=== PATIENT | male | born 1960 | race Caucasian/White ===

== ENCOUNTER 2018-06-13 15:04 | Observation (INO) | payer OTHER ==
--- OUTSIDE RECORDS SUMMARY | 2018-06-13 15:07 | XMS REPORT | Clinical Summary ---
:1960 Author Organization [facility] Address [address] [place] [id number] Care Team Providers Name Role Phone Johann Baldwin MD Primary Care Provider Allergies Active Allergy Reactions Severity Noted Date Comments No Known Drug Allergies 11/17/2015 Medications No known medications Active Problems Problem Noted Date Light sensitivity 12/28/2015 Graves disease 12/28/2015 Overview: Diagnosed with Graves eye disease by Ochoa Malik per patient Anxiety disorder 11/17/2015 Blood pressure elevated without history of HTN 11/17/2015 Fatigue 11/17/2015 Flushing 11/17/2015 Family History Medical History Relation Name Comments Ventura's disease Mother Hypothyroidism Mother Migraines Mother Hypothyroidism Sister Relation Name Status Comments Mother Sister Social History Tobacco Use Types Packs/Day Years Used Date Never Smoker Alcohol Use Drinks/Week oz/Week Comments Yes 3 Glasses of wine 6 Cans of beer Sex Assigned at Date Recorded Not on file Job Start Date Occupation Industry Not on file Not on file Not on file Travel History Travel Start Travel End No recent travel history available. Last Filed Vital Signs Not on file Plan of Treatment Health Maintenance Due Date Last Done Comments COLON CANCER SCREENING 2010 SHINGRIX VACCINE (1 of 2) 2010 INFLUENZA VACCINE 02/12/2018 HEPATITIS B VACCINES Aged Out No longer eligible based on patient's age to complete this topic IPV VACCINES Aged Out No longer eligible based on patient's age to complete this topic MENINGOCOCCAL VACCINE Aged Out No longer eligible based on patient's age to complete this topic Results Not on fileafter 06/12/2017 Insurance Payer Benefit Plan / Group Subscriber ID Type Phone Address AETNA AETNA HMO,POS,EPO, MC/EC xxxxxxxxxx HMO Advance Directives Patient has advance care planning documents on file. For more information, please contact:Saurav Middleton[address] [place] [address]
[2018-06-13] MEDS ORDERED: NITROGLYCERIN 0.4 MG/TAB SL PRN (15:19)
[2018-06-13] MEDS ORDERED: ONDANSETRON 4 MG/2 ML VIAL IV PRN (15:19)
[2018-06-13] MEDS ORDERED: TRAMADOL HCL 50 MG TAB PO PRN (15:19)
[2018-06-13] MEDS ORDERED: MORPHINE 2 MG/ML SYR IV PRN (15:19)
[2018-06-13] MEDS ORDERED: ACETAMINOPHEN 500 MG TAB PO PRN (15:19)
[2018-06-13 15:48] VITALS: BMI 26.7
[2018-06-13 15:56] LABS: Absolute Lymphocytes (CBC) 1.7 K/uL (0.7-4.9); Absolute Monocytes 0.4 K/uL (0.1-1.3); Absolute Neutrophil 4.3 K/uL (1.8-8.0); Basophils % 0.3 % (0-1.3); Eosinophils % 0.4 % (0-4.4); Hematocrit 44.2 % (39.6-49.0); Lymphocytes % 26.3 % (15.3-44.8); MCH 33.5 pg (27.0-35.0); MCV 94.5 fL (80-100); RBC Red Blood Cell Count 4.67 M/uL (4.33-5.43)
--- NOTE | 2018-06-13 16:03 | P.HP ---
Certification for Inpatient Patient admitted to: Observation With expected LOS: <2 Midnights Patient will require the following post-hospital care: None Practitioner: I am a practitioner with admitting privileges, knowledge of patient current condition, hospital course, and medical plan of care. Services: Services provided to patient in accordance with Admission requirements found in Title 42 Section 412.3 of the Code of Federal Regulations Patient History Date of Service: 06/13/18 Primary Care Provider: None Reason for admission: Chest pain History of Present Illness: 57-year-old male presented to the [facility] emergency room with chest pain. Patient reported pain to the epigastric and sternal chest region. Pain has come and gone. Pain is not severe. He report chest pain about a year ago at [facility]. He was evaluated in the emergency room. He was told to follow up with cardiology for outpatient stress test but he was not able to. Initial EKG and cardiac enzymes unremarkable. The patient was then transferred to our facility to continue the workup. When I saw the patient he is without any significant chest pain. He denies any significant major medical problems. He does report a history of mild elevation in his blood pressure. He does not taking medication. He does dip nicotine and drinks alcohol. Repeat lab pending at this time Home medications list reviewed: Yes Home Medications: NK [No Home Meds] 06/13/18 - Past Medical/Surgical History Has patient received pneumonia vaccine in the past: No Diabetic: No -: Tobacco use -: Alcohol use -: ACL surgery Left knee -: Tonsilectomy Psychosocial/ Personal History: The patient is . He has no children. He works - Family History Mother -: Other (see notes) (Hypothyroidism, Crosby's disease and fibromyalgia) - Social History Smoking Status: Never smoker Alcohol use: Yes CD- Drugs: No Caffeine use: Yes Place of Residence: Home Review of Systems General: As per HPI Eyes: Unremarkable ENT: Unremarkable Respiratory: Unremarkable Cardiovascular: Chest Pain, As per HPI Gastrointestinal: Unremarkable Genitourinary: Unremarkable Musculoskeletal: Unremarkable Integumentary: Unremarkable Neurological: Unremarkable Lymphatics: Unremarkable Physical Examination - Physical Exam General: Alert, In no apparent distress, Oriented x3, Cooperative HEENT: Atraumatic, Normocephalic, PERRLA, Mucous membr. moist/pink Neck: Supple, No Thyromegaly Respiratory: Clear to auscultation bilaterally, Normal air movement Cardiovascular: Normal pulses, Regular rate/rhythm Gastrointestinal: Normal bowel sounds, Soft and benign, Non-distended, No tenderness, No masses, No rebound, No guarding Musculoskeletal: No contractures, No erythema, No tenderness, No warmth Integumentary: No tenderness/swelling, No erythema, No warmth, No cyanosis Neurological: Normal speech, Normal strength at 5/5 x4 extr, Normal tone, Normal affect Assessment and Plan - Plan Impression: Chest pain, atypical Tobacco use Alcohol use Plan: Chest pain, atypical: Patient transfer to our facility to continue did to evaluate chest pain. Will monitor closely on telemetry. Will monitor cardiac enzymes. Will provide medication for chest pain if required. Will monitor blood pressures. Patient may require blood pressure medication if elevated. Will obtain echocardiogram to further evaluate. Will consult cardiology to further assess. If unremarkable then the patient may be able to be followed up as an outpatient with cardiology for stress test evaluation. Await further recommendations from cardiology. Will obtain lab to evaluate for fasting lipid panel and thyroid disease. Tobacco use: Tobacco cessation addressed in detail. Alcohol use: Alcohol cessation addressed in detail. Discharge Plan: Home Plan to discharge in: 24 Hours - Advance Directives Does patient have a Living Will: No Does patient have a Durable POA for Healthcare: No - Code Status/Comfort Care Code Status Assessed: Yes (Patient is full code.) Time Spent Managing Pts Care (In Minutes): 55
[2018-06-13 16:13] LABS: Potassium 3.9 mmol/L (3.5-5.1)
[2018-06-13] MEDS: ENOXAPARIN 40 MG/0.4 ML SQ SCH (17:00)
[2018-06-13] MEDS ORDERED: INFLUENZA VACCINE (for 3y+) 0.5 ML DOSE IMVAC ONE (17:00)
[2018-06-13] MEDS: NA CHLORIDE 0.9% 1,000 ML IV SCH ×2 (17:07→19:47)
--- NOTE | 2018-06-13 21:19 | CON ---
Date of Consultation: 06/13/2018 History Of Present Illness: Mr. Bales has been having chest pain. Several years ago, he had ches t pain, went to the ER, was released, never had any followup. Beginning Saturday, he started having ch est pain. Pain is constant. All across the anterior part of his chest. No nausea, vomiting, or swe ating. It does not seem to wax or wane. Nothing seems to make it better or worse. He is able to ca rry on activities normally. Since being here in the hospital, he has not had a troponin or an EKG. The patient has never had myocardial infarction or stroke. He had cluster migraine headaches. Medications: He does not take any medications. Allergies: HE DOES NOT HAVE ANY ALLERGIES. Social History: He is a regular tobacco user. He dips snuff. He uses no illegal drugs. Alcohol us e is sporadic, sometimes heavy. Physical Examination: General: 6 feet tall, 197 pounds. HEENT: Normal. Lungs: Clear. Heart Exam: Within normal limits. Abdomen: Soft. Extremities: Normal. We need to get an EKG. I think it is probably already past the time when we can get an echocardiogra m done. Impression And Plan: The patient has probably noncardiac chest pain. We will get an EKG, serial enz ymes. If they are stable, we will do an outpatient workup with echocardiogram and nuclear stress haris t. He needs to get off tobacco completely and we will try and figure if he has a lipid panel abnormality by checking it tomorrow morning. ARIS/CARL Voice ID: [id number] Report ID: [id number]
[2018-06-13 22:42] LABS: CKMB Creatine Kinase MB < 1.0 ng/mL (0.3-3.6); Creatine Phosphokinase 57 U/L (39-308); Troponin I < 0.02 ng/mL (0.0-0.045)
[2018-06-14 03:43] LABS: Urine Appearance CLEAR; Urine Bilirubin NEGATIVE (NEG); Urine Blood NEGATIVE (NEG); Urine Color YELLOW; Urine Glucose NEGATIVE (NEG); Urine Protein NEGATIVE (NEG); Urine Urobilinogen 0.2 mg/dL (0.2-1.0)
[2018-06-14 03:54] LABS: Urine Microscopic Reflex NO UMIC
[2018-06-14 05:19] LABS: Absolute Lymphocytes (CBC) 2.1 K/uL (0.7-4.9); Absolute Monocytes 0.5 K/uL (0.1-1.3); Absolute Neutrophil 1.9 K/uL (1.8-8.0); Basophils % 0.4 % (0-1.3); Eosinophils % 2.2 % (0-4.4); Hematocrit 39.6 % (39.6-49.0); Lymphocytes % 45.8 % (15.3-44.8); MCH 33.4 pg (27.0-35.0); MPV 8.2 fL (7.6-11.3); RBC Red Blood Cell Count 4.16 M/uL (4.33-5.43)
[2018-06-14 05:39] LABS: Potassium 3.9 mmol/L (3.5-5.1)
[2018-06-14 05:41] LABS: CKMB Creatine Kinase MB 1.1 ng/mL (0.3-3.6); Creatine Phosphokinase 51 U/L (39-308); Troponin I < 0.02 ng/mL (0.0-0.045)
[2018-06-14] MEDS ORDERED: PANTOPRAZOLE 40MG TABLET PO SCH (07:30)
--- NOTE | 2018-06-14 08:30 | EKG ---
Test Date: 2018-06-13 Test Time: 16:29:08 Sap Data Analyst: ASHWIN MEASUREMENT RESULTS: Intervals: Rate: 64 KY: 184 QRSD: 122 QT: 426 QTc: 439 Slater: P: 53 KY: 184 QRS: -13 T: 20 INTERPRETIVE STATEMENTS: Normal sinus rhythm Normal ECG No previous ECG available for comparison Electronically Signed On 06-14-18 08:29:10 RIGGING SLINGER by Lucas Johnson
[2018-06-14] MEDS: ENOXAPARIN 40 MG/0.4 ML SQ SCH (08:50)
[2018-06-14] MEDS ORDERED: ASPIRIN EC 81 MG TAB PO SCH (09:00)
[2018-06-14] MEDS ORDERED: COLCHICINE 0.6 MG TAB PO ONE (09:20)
--- NOTE | 2018-06-14 10:47 | P.DS ---
Admission Date: 06/13/18 Discharge Date: 06/14/18 Primary Care Provider: None Disposition: ROUTINE DISCHARGE Discharge Condition: GOOD Reason for Admission: Chest pain Consultations: Cardiology-Dr. Johnson Procedures: none Medical problem list: Chest pain, atypical likely noncardiac GERD Tobacco use Alcohol use Brief History of Present Illness: 57-year-old male presented to the [facility] emergency room with chest pain. Patient reported pain to the epigastric and sternal chest region. Pain has come and gone. Pain is not severe. He report chest pain about a year ago at [facility]. He was evaluated in the emergency room. He was told to follow up with cardiology for outpatient stress test but he was not able to. Initial EKG and cardiac enzymes unremarkable. The patient was then transferred to our facility to continue the workup. When I saw the patient he is without any significant chest pain. He denies any significant major medical problems. He does report a history of mild elevation in his blood pressure. He does not taking medication. He does dip nicotine and drinks alcohol. Hospital Course: Patient presented with chest pain. Patient admitted for further evaluation. Patient seen by Cardiology. No cardiac intervention was required. Cardiac enzymes unremarkable. Lipid panel unremarkable. Chest pain resolved. At discharge patient will follow up with cardiology in 1 week. Patient will need to have an outpatient echocardiogram and stress test to further evaluate. Patient may continue with aspirin 81 mg daily. Patient may have underlying GERD. At discharge he will continue with Protonix 40 mg 1 pill once daily. Patient may benefit with GI evaluation with endoscopy in the future to further evaluate. Lifestyle modification education will be provided. Patient with tobacco and alcohol use. Cessation addressed in detail. Patient will establish care locally with a PCP to continue his care. Vital Signs/Physical Exam: Temp Pulse Resp BP Pulse Ox 98.0 F 74 20 136/79 100 06/14/18 08:00 06/14/18 08:00 06/14/18 08:00 06/14/18 08:00 06/14/18 08:00 General: Alert, In no apparent distress, Oriented x3, Cooperative HEENT: Atraumatic Neck: Supple Respiratory: Clear to auscultation bilaterally, Normal air movement Cardiovascular: Normal pulses, Regular rate/rhythm Gastrointestinal: Normal bowel sounds, Soft and benign, Non-distended, No tenderness, No masses, No rebound, No guarding Musculoskeletal: No erythema, No tenderness, No warmth Integumentary: No tenderness/swelling, No erythema, No warmth, No cyanosis Neurological: Normal speech, Normal strength at 5/5 x4 extr, Normal tone, Normal affect Lymphatics: No axilla or inguinal lymphadenopathy Laboratory Data at Discharge: WBC 4.6 K/uL (4.3-10.9) D 06/14/18 04:49 Hgb 13.9 g/dL (13.6-17.9) 06/14/18 04:49 Hct 39.6 % (39.6-49.0) 06/14/18 04:49 Plt Count 169 K/uL (152-406) D 06/14/18 04:49 Sodium 140 mmol/L (136-145) 06/14/18 04:49 Potassium 3.9 mmol/L (3.5-5.1) 06/14/18 04:49 BUN 13 mg/dL (7-18) 06/14/18 04:49 Creatinine 0.90 mg/dL (0.55-1.3) 06/14/18 04:49 Glucose 89 mg/dL (74-106) 06/14/18 04:49 Magnesium 2.0 mg/dL (1.8-2.4) 06/14/18 04:49 Troponin I < 0.02 ng/mL (0.0-0.045) 06/14/18 04:49 Triglycerides 99 mg/dL (<150) 06/14/18 04:49 Cholesterol 156 mg/dL (<200) 06/14/18 04:49 HDL Cholesterol 62 mg/dL (40-60) H 06/14/18 04:49 Cholesterol/HDL Ratio 2.52 06/14/18 04:49 Home Medications: Aspirin [Aspirin EC 81 MG] 81 mg PO DAILY #90 tablet. 06/14/18 Pantoprazole [Protonix Tab*] 40 mg PO DAILY #30 tab 06/14/18 New Medications: Aspirin [Aspirin EC 81 MG] 81 mg PO DAILY #90 tablet. Pantoprazole [Protonix Tab*] 40 mg PO DAILY #30 tab Patient Discharge Instructions: 1. Patient will need to establish care with a local PCP to continue his care. 2. Patient presented with chest pain. Patient admitted for further evaluation. Patient seen by Cardiology. No cardiac intervention was required. Cardiac enzymes unremarkable. Lipid panel unremarkable. Chest pain resolved. At discharge patient will follow up with cardiology in 1 week. Patient will need to have an outpatient echocardiogram and stress test to further evaluate. Patient may continue with aspirin 81 mg daily. 3. Patient may have underlying GERD. At discharge he will continue with Protonix 40 mg 1 pill once daily. Patient may benefit with GI evaluation with endoscopy in the future to further evaluate. Lifestyle modification education will be provided. 4. Patient with tobacco and alcohol use. Cessation addressed in detail. 5. Patient will establish care locally with a PCP to continue his care. Diet: AHA Activity: Ad josé Time spent managing pt's care (in minutes): 55
[2018-06-14 12:50] VITALS: BP 132/72; TEMP 98.4
--- NOTE | 2018-06-14 14:18 | PN ---
Subjective: Mr. Bales has normal enzymes and normal EKG. He does not have a friction rub, but wh en he lays flat, his pain gets worse; when he sits up, it gets better. I will recommend we give him colchicine. If it helps improve his symptoms, he could be discharged home to take colchicine and do an outpatient stress test. GEETHA Voice ID: [id number] Report ID: [id number]
[2018-06-14 14:35] VITALS: O2SAT 97
== END 2018-06-14 12:50 | disposition home or self-care (01) ==
LOC: 4TH 15:04
PROVIDERS: ADMIT Family Medicine; ATTEND Family Medicine
DX: R07.89 Other chest pain (principal); K21.9 Gastro-esophageal reflux disease without esophagitis; F17.210 Nicotine dependence, cigarettes, uncomplicated; Z72.89 Other problems related to lifestyle; Z23 Encounter for immunization
CPT/HCPCS: 36415; 80048; 80061; 81003; 82550; 82553; 83735; 84484; 85025; 93005; G0008; G0378; J1650; J7030; Q2035